=== PATIENT | female | born 1985 | race Caucasian/White ===

== ENCOUNTER 2020-02-11 23:29 | Observation (INO) | payer BC ==
--- OUTSIDE RECORDS SUMMARY | 2020-02-11 23:31 | XMS REPORT | Summary of Care ---
:1985 Author Organization [facility] Address [address] [place] [address] Care Team Providers Name Role Phone Andrae Rodriguez MD Primary Care Provider Reason for Visit Reason Comments Refill Request Encounter Details Date Type Department Care Team Description 12/13/2019 Refill [facility] Family Medicine Bautista Shen MD Refill Request - [address] [place] [address] [place] [address] [phone] Allergies No Known Allergiesdocumented as of this encounter (statuses as of 12/13/2019) Medications Medication Sig Dispensed Refills Start Date End Date Status triamcinolone acetonide Apply to 80 g 1 03/09/2018 Active 0.1 % creamIndications: area(s) 2 Keratosis pilaris (two) times daily. lisdexamfetamine TAKE ONE (1) 30 capsule 0 06/14/2019 Active (VYVANSE) 50 mg CAPSULE(S) BY capsuleIndications: MOUTH EVERY Attention deficit MORNING. disorder of adult lisdexamfetamine TAKE ONE (1) 30 capsule 0 11/16/2019 Active (VYVANSE) 50 mg CAPSULE(S) BY capsuleIndications: MOUTH EVERY Attention deficit MORNING. disorder of adult documented as of this encounter (statuses as of 12/13/2019) Active Problems Problem Noted Date Attention deficit disorder of adult 04/13/2015 Acne vulgaris 04/13/2015 documented as of this encounter (statuses as of 12/13/2019) Immunizations Name Administration Dates Next Due TDAP 06/02/2017 documented as of this encounter Social History Tobacco Use Types Packs/Day Years Used Date Never Smoker Smokeless Tobacco: Never Used Alcohol Use Drinks/Week oz/Week Comments No 0 Standard drinks or equivalent 0.0 Sex Assigned at Date Recorded Not on file Job Start Date Occupation Industry Not on file Not on file Not on file Travel History Travel Start Travel End No recent travel history available. documented as of this encounter Last Filed Vital Signs Not on filedocumented in this encounter Plan of Treatment Date Type Specialty Care Team Description 01/03/2020 Office Visit Family Medicine Bautista Rodriguez MD [address] [place] [address] [phone] Health Maintenance Due Date Last Done Comments VARICELLA VACCINES (1 of 2 - 1984 2-dose childhood series) Depression Screening 12/31/2019 12/30/2018 INFLUENZA VACCINE (#1) 2020 PAP SMEAR 12/31/2020 12/31/2017 DTaP,Tdap,and Td Vaccines (2 - Td) 06/02/2027 06/02/2017 PNEUMOCOCCAL 0-64 YEARS COMBINED Aged Out No longer eligible based on SERIES patient's age to complete this topic documented as of this encounter Results Not on filedocumented in this encounter Visit Diagnoses Diagnosis Attention deficit disorder of adult Attention deficit disorder without menti on of hyperactivity documented in this encounter Insurance Payer Benefit Plan Subscriber ID Effective Dates Phone Address Type / Group BCBS [facility] [id number] 2015-[place] [phone] [address] PPO/POS [place] - OUT OF 87 [id number] [place] [address] documented as of this encounter
--- OUTSIDE RECORDS SUMMARY | 2020-02-11 23:31 | XMS REPORT | Summary of Care ---
:1985 Author Organization [facility] Address [address] [place] [address] Care Team Providers Name Role Phone Andrae Rodriguez MD Primary Care Provider Reason for Visit Reason Comments Refill Request Encounter Details Date Type Department Care Team Description 11/16/2019 Refill [facility] Family Medicine Bautista Shen MD Refill Request - [address] [place] [address] [place] [address] [phone] Allergies No Known Allergiesdocumented as of this encounter (statuses as of 11/16/2019) Medications Medication Sig Dispensed Refills Start Date End Date Status triamcinolone Apply to 80 g 1 03/09/2018 Activ e acetonide 0.1 % area(s) 2 creamIndications: (two) Keratosis pilaris times daily. lisdexamfetamine TAKE ONE 30 capsule 0 06/14/2019 A ctive (VYVANSE) 50 mg (1) capsuleIndications: CAPSULE(S) Attention deficit BY MOUTH disorder of adult EVERY MORNING. lisdexamfetamine TAKE ONE 30 capsule 0 11/16/2019 A ctive (VYVANSE) 50 mg (1) capsuleIndications: CAPSULE(S) Attention deficit BY MOUTH disorder of adult EVERY MORNING. lisdexamfetamine TAKE ONE 30 capsule 0 10/18/2019 D iscontinued (VYVANSE) 50 mg (1) 0 (Reo rder) capsuleIndications: CAPSULE(S) Attention deficit BY MOUTH disorder of adult EVERY MORNING. documented as of this encounter (statuses as of 11/16/2019) Active Problems Problem Noted Date Attention deficit disorder of adult 04/13/2015 Acne vulgaris 04/13/2015 documented as of this encounter (statuses as of 11/16/2019) Immunizations Name Administration Dates Next Due Tdap 06/02/2017 documented as of this encounter Social [...] filedocumented in this encounter Plan of Treatment Health Maintenance Due Date Last Done Comments VARICELLA VACCINES (1 of 2 - 1984 2-dose childhood series) Depression Screening 12/31/2019 12/30/2018 INFLUENZA VACCINE (Season Ended) 2020 PAP SMEAR 12/31/2020 12/31/2017 DTaP,Tdap,and Td [...] Dates Phone Address Type / Group BCBS [facility] [id number] 2015-[place] [phone] [address] PPO/POS [place] - OUT OF 87 [id number] [place] [address] documented as of this encounter
--- OUTSIDE RECORDS SUMMARY | 2020-02-11 23:32 | XMS REPORT | Summary of Care ---
:1985 Author Organization [facility] Address [address] [place] [address] Care Team Providers Name Role Phone Andrae Rodriguez MD Primary Care Provider Reason for Visit Reason Comments Refill Request Encounter Details Date Type Department Care Team Description 12/14/2019 Refill [facility] Family Medicine Bautista Shen MD Refill Request - [address] [place] [address] [place] [address] [phone] Allergies No Known Allergiesdocumented as of this encounter (statuses as of 12/14/2019) Medications Medication Sig Dispensed Refills Start Date [...] as of this encounter (statuses as of 12/14/2019) Active Problems Problem Noted Date Attention deficit disorder of adult 04/13/2015 Acne vulgaris 04/13/2015 documented as of this encounter (statuses as of 12/14/2019) Immunizations Name Administration Dates Next Due TDAP [...] Office Visit Family Medicine Bautista Rodriguez MD [address] [place] [address] [phone] Health Maintenance Due Date Last Done [...] Dates Phone Address Type / Group BCBS [facility] [id number] 2015-[place] [phone] [address] PPO/POS [place] - OUT OF 87 [id number] [place] [address] documented as of this encounter
--- OUTSIDE RECORDS SUMMARY | 2020-02-11 23:32 | XMS REPORT | Continuity of Care Document ---
:1985 Author Organization [facility] t Address [address] [place] [address] Care Team Providers Name Role Phone Andrae Rodriguez MD Attending Clinician Problems This patient has no known problems. Allergies, Adverse Reactions, Alerts This patient has no known allergies or adverse reactions. Medications This patient has no known medications. Procedures This patient has no known procedures. Encounters Start End Encounter Admission Attending Care Care Encounter Source Date/Time Date/Time Type Type Clinicians Facility Department ID 2019-12-14 2019-12-14 Refill [place], [facility] [id number] 00:00:00 00:00:00 [facility] [id number] [facility] [id number] Professio [phone] nal [address] One 2019-12-13 2019-12-13 Refill [place], [facility] [id number] 00:00:00 00:00:00 [facility] [id number] [facility] [id number] Professio [phone] nal 044 Office [address] One 2019-12-13 2019-12-13 Refill [place], [facility] [id number] 00:00:00 00:00:00 [facility] [id number] [facility] [id number] Professio [phone] nal 044 Office [address] One 2019-12-10 2019-12-10 Refill [place], [facility] [id number] 00:00:00 00:00:00 [facility] [id number] [facility] [place] [id number] Professio [phone] [place] [address] [address] One 2019-11-16 2019-11-16 [facility] [id number] 00:00:00 00:00:00 [facility] [id number] [facility] [place] [id number] Professio [phone] [place] [address] [address] One 2019-10-18 2019-10-18 [facility] [id number] 00:00:00 00:00:00 [facility] [id number] [facility] [place] [id number] Professio [phone] [place] [address] [address] One 2019-09-21 2019-09-21 [facility] [id number] 00:00:00 00:00:00 [facility] [id number] [facility] [place] [id number] Professio [phone] [place] [address] [address] One 2019-08-27 2019-08-27 [facility] [id number] 00:00:00 00:00:00 [facility] [id number] [facility] [place] [id number] Professio [phone] [place] [address] [address] One 2019-08-01 2019-08-01 [facility] [id number] 00:00:00 00:00:00 [facility] [id number] [facility] [place] [id number] Professio [phone] [place] [address] [address] One 2019-07-08 2019-07-08 [facility] [id number] 00:00:00 00:00:00 [facility] [id number] [facility] [place] [id number] Professio [phone] nal 044 Office Building One 2019-06-22 2019-06-22 Office [facility] [id number] 16:27:01 16:42:01 Visit [facility] [id number] [facility] [id number] Julio [phone] [place] [address] [address] One Results This patient has no known results.
--- OUTSIDE RECORDS SUMMARY | 2020-02-11 23:32 | XMS REPORT | Summary of Care ---
:1985 Author Organization [facility] Address [address] [place] [address] Care Team Providers Name Role Phone Andrae Rodriguez MD Primary Care Provider Reason for Visit Reason Comments Refill Request Encounter Details Date Type Department Care Team Description 12/10/2019 Refill [facility] Family Medicine Bautista Shen MD Refill Request - [address] [place] [address] [place] [address] [phone] Allergies No Known Allergiesdocumented as of this [...] Office Visit Family Medicine Bautista Rodriguez MD [address] [place] [address] [phone] Health Maintenance Due Date Last Done [...] Dates Phone Address Type / Group BCBS [facility] [id number] 2015-[place] [phone] [address] PPO/POS [place] - OUT OF 87 [id number] [place] [address] documented as of this encounter
--- OUTSIDE RECORDS SUMMARY | 2020-02-11 23:32 | XMS REPORT | Summary of Care ---
:1985 Author Organization [facility] Address [address] [place] [address] Care Team Providers Name Role Phone Andrae Rodriguez MD Primary Care Provider Reason for Visit Reason Comments Refill Request Encounter Details Date Type Department Care Team Description 12/13/[address] [facility] Family Medicine Bautista Shen MD Refill Request - [address] [place] [address] [place] [address] [phone] Allergies No Known Allergiesdocumented as of this [...] Office Visit Family Medicine Bautista Rodriguez MD [address] [place] [address] [phone] Health Maintenance Due Date Last Done [...] Dates Phone Address Type / Group BCBS [facility] [id number] 2015-[place] [phone] [address] PPO/POS [place] - OUT OF 87 [id number] [place] [address] documented as of this encounter
[2020-02-12 00:34] LABS: Absolute Lymphocytes (CBC) 1.8 K/uL (0.7-4.9); Basophils % 0.6 % (0-1.3); Hematocrit 40.2 % (36.0-45.0); Lymphocytes % 31.8 % (15.3-44.8); MPV 8.1 fL (7.6-11.3); RBC Red Blood Cell Count 4.32 M/uL (3.86-4.86)
[2020-02-12 00:41] LABS: Protime INR 0.99
[2020-02-12] MEDS ORDERED: NA CHLORIDE 0.9% 1,000 ML ONE ×2 (00:47→03:36)
[2020-02-12 01:01] LABS: ALT/SGPT 44 U/L (12-78); AST/SGOT 15 U/L (15-37); Albumin 3.7 g/dL (3.4-5.0); Alkaline Phosphatase 54 U/L (45-117); BUN Blood Urea Nitrogen 13 mg/dL (7-18); Bicarbonate 26 mmol/L (21-32); Bilirubin Direct < 0.1 mg/dL (0-0.2); Bilirubin Total 0.3 mg/dL (0.2-1.0); Glucose Level 90 mg/dL (74-106); Potassium 3.6 mmol/L (3.5-5.1); Protein, Total 7.6 g/dL (6.4-8.2); Sodium Level 141 mmol/L (136-145)
--- NOTE | 2020-02-12 01:23 | EDPHYS ---
Physician Documentation [facility] Name: Steph Young Age: 34 yrs Sex: Female : 1985 Arrival Date: 02/11/2020 Time: 23:32 Bed 7 Private MD: ED Physician Barrie Martinez HPI: 02/10 23:55 This 34 yrs old Female presents to ER via Unassigned with complaints of kb possible overdose. 23:55 The patient presents to the emergency department with a possible overdose, pt reports kb taking only one 10mg pill, but bottle of 30 was filled today and only 3 remain. Context: Method: the patient has a confirmed or suspected ingestion, ambien, Time: at 20:45, Extent: the original prescription was for 30 pills/capsules, there were 3 pills/capsules remaining in the container, the strength of the pills/capsules is 10 mg(s), the OD/poisoning occurred at at home, and was witnessed no one, Psychiatric history: none, Previous OD/poisoning history: none. Associated signs and symptoms: The patient has no apparent associated signs or symptoms. Severity of symptoms: At their worst the symptoms were moderate in the emergency department the symptoms are unchanged. The patient has not experienced similar symptoms in the past. The patient has not recently seen a physician. Pt states she got into an argument with her family, took her normal ambien (1 pill) and planned to go to sleep. Pt's mother brought her to the ER concerned that pt took more ambien than she stated. Pt denies suicidal or homicidal ideations. States she has been under more stress lately. Pt has no complaints. . 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 - Social history:: Smoking status: Patient denies any tobacco usage or history of. ROS: 02/10 23:55 Constitutional: Negative for fever, chills, and weight loss, Cardiovascular: Negative kb for chest pain, palpitations, and edema, Respiratory: Negative for shortness of breath, cough, wheezing, and pleuritic chest pain, Abdomen/GI: Negative for abdominal pain, nausea, vomiting, diarrhea, and constipation, Back: Negative for injury and pain, MS/Extremity: Negative for injury and deformity, Skin: Negative for injury, rash, and discoloration, Neuro: Negative for headache, weakness, numbness, tingling, and seizure. Exam: 23:55 Constitutional: This is a well developed, well nourished patient who is awake, alert, kb and in no acute distress. Head/Face: Normocephalic, atraumatic. Chest/axilla: Normal chest wall appearance and motion. Nontender with no deformity. No lesions are appreciated. Cardiovascular: Regular rate and rhythm with a normal S1 and S2. No gallops, murmurs, or rubs. Normal PMI, no JVD. No pulse deficits. Respiratory: Lungs have equal breath sounds bilaterally, clear to auscultation and percussion. No rales, rhonchi or wheezes noted. No increased work of breathing, no retractions or nasal flaring. Abdomen/GI: Soft, non-tender, with normal bowel sounds. No distension or tympany. No guarding or rebound. No evidence of tenderness throughout. Skin: Warm, dry with normal turgor. Normal color with no rashes, no lesions, and no evidence of cellulitis. MS/ Extremity: Pulses equal, no cyanosis. Neurovascular intact. Full, normal range of motion. Neuro: Awake and alert, GCS 15, oriented to person, place, time, and situation. Cranial nerves II-XII grossly intact. Motor strength 5/5 in all extremities. Sensory grossly intact. Cerebellar exam normal. Normal gait. 02/11 00:22 ECG was reviewed by the Attending Physician. kb Vital Signs: 02/10 23:55 BP 120 / 92; Pulse 112; Resp 18; Temp 98.5(O); Pulse Ox 100% on R/A; Weight 48.99 kg lp1 (R); 02/11 00:48 BP 139 / 106; Pulse 98; Resp 20; Pulse Ox 99% on R/A; rv MDM: 02/10 23:40 Patient medically screened. kb 23:54 Data reviewed: vital signs, nurses notes. Data interpreted: Pulse oximetry: on room air kb is 100 %. Interpretation: normal. 02/11 00:24 Transition of care: After a detail discussion of the patient's case, care is kb transferred to Barrie Martinez MD. 03:17 Counseling: I had a detailed discussion with the patient and/or guardian regarding: the 4 historical points, exam findings, and any diagnostic results supporting the discharge/admit diagnosis, lab results. Physician consultation: Adam JOHNSON regarding admission, to the telemetry unit. and will see patient in ED, would like admission per Dr. Carlos Arnett. 02/10 23:54 Order name: Acetaminophen; Complete Time: 01:19 kb 02/11 01:19 Interpretation: Normal except: ACETA < 2.0. [facility] 02/10 23:54 Order name: Basic Metabolic Panel; Complete Time: 01:19 kb 02/11 01:19 Interpretation: Normal except: CL 108. tw 02/10 23:54 Order name: CBC with Diff; Complete Time: 00:45 kb 02/10 23:54 Order name: ETOH Level; Complete Time: 01:19 kb 02/11 01:19 Interpretation: Within normal limits: ETOH < 10. tw 02/10 23:54 Order name: Hepatic Function; Complete Time: 01:19 kb 02/11 01:19 Interpretation: Normal except: GLOB 3.9; A/G 0.9. [facility] 02/10 23:54 Order name: PT-INR; Complete Time: 00:45 kb 02/10 23:54 Order name: Ptt, Activated; Complete Time: 00:45 kb 02/10 23:54 Order name: Salicylate; Complete Time: 01:19 kb 02/11 01:19 Interpretation: Within normal limits: TINO < 1.7. tw 02/10 23:54 Order name: Urine Drug Screen; Complete Time: 16:00 kb 02/11 02:07 Order name: Urinalysis EDSC 02/11 02:07 Order name: Basic Metabolic Panel EDSC 02/11 02:07 Order name: Basic Metabolic Panel EDSC 02/11 02:07 Order name: CBC with Automated Diff EDMS 02/11 02:07 Order name: CBC with Automated Diff EDMS 02/10 23:54 Order name: Urine Test (obtain specimen); Complete Time: 08:31 kb 02/10 23:54 Order name: EKG; Complete Time: 23:54 kb 02/10 23:54 Order name: EKG - Nurse/Tech; Complete Time: 00:46 kb 02/10 23:54 Order name: IV Saline Lock; Complete Time: 00:46 kb 02/10 23:54 Order name: Labs collected and sent; Complete Time: 00:46 kb 02/10 23:54 Order name: Urine Dipstick-Ancillary (obtain specimen); Complete Time: 08:31 kb 02/10 23:54 Order name: Misc. Order: Contact poison control for recommendations; Complete Time: kb 23:59 02/11 02:06 Order name: NPO EDMS 02/11 02:07 Order name: Magnesium EDMS 02/11 02:07 Order name: Magnesium EDMS 02/11 08:41 Order name: Urine Dipstick--Ancillary (enter results) eb 02/11 08:41 Order name: Urine --Ancillary (enter results) eb 02/11 08:50 Order name: Urine --Ancillary; Complete Time: 16:00 EDMS 02/11 08:50 Order name: Urine Dipstick-Ancillary; Complete Time: 16:00 EDMS EC:22 Rate is 99 beats/min. Rhythm is regular. QRS [place] is Normal. OK interval is normal at kb 116 msec. QRS interval is normal at 80 msec. QT interval is normal at 374 msec. Administered Medications: 00:46 Drug: NS 0.9% 1000 ml Route: IV; Rate: 1000 ml; Site: right antecubital; rv 03:19 Follow up: IV Status: Completed infusion; IV Intake: 1000ml rv Disposition: 03:17 Co-signature as Attending Physician, Barrie Martinez MD I agree with the assessment and 4 plan of care. Disposition: 02/12/20 01:22 Hospitalization ordered by Carlos Arnett for Observation. 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 - Bed requested for [facility] ER HOLD. - Status is Observation. em - Condition is Stable. - Problem is new. - Symptoms are unchanged. 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 Pt's mother brought her to the ER concerned that pt took more ambien than she stated. Pt denies suicidal or homicidal ideations. States she has been under more stress lately. Pt has no complaints. kb 02/11 01:25 01:22 Hospitalization Ordered by Shan Mcginnis MD for Inpatient Admission. 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 Bed requested for Telemetry/MedSurg (Inpatient). Status is Inpatient Admission. Condition is Stable. Problem is new. Symptoms are unchanged. 4 01:56 01:25 02/12/2020 01:22 Hospitalization Ordered by Carlos Arnett for Observation. 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 Bed requested for Telemetry/MedSurg (observation). Status is Observation. Condition is Stable. Problem is new. Symptoms are unchanged. [facility] 13:02 01:56 02/12/2020 01:22 Hospitalization Ordered by Carlos Arnett for Observation. 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 Bed requested for [facility] ER HOLD. Status is Observation. Condition is Stable. Problem is new. Symptoms are unchanged. mw
--- NOTE | 2020-02-12 01:23 | ER ---
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 Coronavirus screen: Client denies travel out of the [place] in the last 14 days. At this time, the client does not indicate any symptoms associated with coronavirus-19. Ebola Screen: No symptoms or risks identified at this time. Initial Sepsis Screen: Does the patient meet any 2 criteria? No. Patient's initial sepsis screen is negative. Does the patient have a suspected source of infection? No. Patient's initial sepsis screen is negative. Risk Assessment: Do you want to hurt yourself or someone else? Patient reports no desire to harm self or others. Note Patient denies SI, HI; States being under stress with children and work. Onset of symptoms was February 11, 2020. 23:55 Method Of Arrival: Wheelchair lp1 23:55 Acuity: DAT 2 lp1 02/11 00:00 Ebola Screen: No symptoms or risks identified at this time. ea Triage Assessment: 00:10 General: Appears comfortable, Behavior is drowsy, quiet. Pain: Denies pain. Neuro: rv Level of Consciousness is lethargic, Oriented to person, place, time, situation. Cardiovascular: Patient's skin is warm and dry. Rhythm is sinus tachycardia. Respiratory: Airway is patent Respiratory effort is even, unlabored, Respiratory pattern is regular. 00:10 GI: Abdomen is flat, non-distended, Bowel sounds present X 4 quads. Derm: Skin is rv intact. FIELD SUPPORT SPECIALIST: 00:10 LMP 01/29/2020 lp1 Historical: - Allergies: 00:01 No Known Allergies; ea - Home Meds: 00:01 control [Active]; ea 00:11 Vyvanse 50 mg oral cap 1 cap once daily [Active]; propranolol 20 mg Oral tab [Active]; lp1 zolpidem 10 mg Oral tab nightly [Active]; escitalopram oxalate 10 mg oral tab 1 tab once daily [Active]; - PMHx: 00:01 Depression; Anxiety; ea - PSHx: 00:01 breast augmentation; ea - Immunization history:: Adult Immunizations up to date. - Social history:: Smoking status: Patient denies any tobacco usage or history of. Screenin/11 23:59 Abuse screen: Denies threats or abuse. Nutritional screening: No deficits noted. ea Tuberculosis screening: No symptoms or risk factors identified. Fall Risk None identified. Assessment: 23:56 Reassessment: Poison control rep recommends to do an overdose panel CBC, CMP, Tylenol ea levels and a urine test. Reports if pt remains stable and labs are normal she is able to be released. 02/11 00:12 Reassessment: Patient's mother Marinell: [phone]. lp1 00:48 GI: Abd is soft and non tender X 4 quads. rv 01:31 Reassessment: Patient is alert, oriented x 3, equal unlabored respirations, skin ea warm/dry/pink. (mom) [phone]. 05:13 Reassessment: #[id number]. ea Vital Signs: 02/10 23:55 BP 120 / 92; Pulse 112; Resp 18; Temp 98.5(O); Pulse Ox 100% on R/A; Weight 48.99 kg lp1 (R); 02/11 00:48 BP 139 / 106; Pulse 98; Resp 20; Pulse Ox 99% on R/A; rv ED Course: 02/10 23:32 Patient arrived in ED. cf2 23:33 Jermaine Clay RN is Primary Nurse. rv 23:40 Zaina Diaz FNP-C is PHCP. kb 23:40 Barrie Martinez MD is Attending Physician. kb 23:59 Patient has correct armband on for positive identification. Placed in gown. Bed in low ea position. Call light in reach. Side rails up X2. cardiac monitor technician on. Pulse ox on. NIBP on. 02/11 00:00 Arm band placed on right wrist. Patient placed in an exam room, on a stretcher, on ea pulse oximetry. 00:09 Triage completed. lp1 00:15 Inserted saline lock: 20 gauge in right antecubital area, using aseptic technique. rv Blood collected. 00:15 Initial lab(s) drawn, by me, sent to lab. EKG done, by ED staff, reviewed by Zaina RODRIGUEZ. 01:20 Shan Mcginnis MD is Hospitalizing Provider. tw4 01:24 Hospitalizing Provider role handed off by Shan Mcginnis MD tw4 01:24 Carlos Arnett is Hospitalizing Provider. tw4 03:19 No provider procedures requiring assistance completed. IV is patent, with fluids rv infusing freely, Patient admitted, IV remains in place. Administered Medications: 00:46 Drug: NS 0.9% 1000 ml Route: IV; Rate: 1000 ml; Site: right antecubital; rv 03:19 Follow up: IV Status: Completed infusion; IV Intake: 1000ml rv Intake: 03:19 IV: 1000ml; Total: 1000ml. rv Outcome: 01:22 Decision to Hospitalize by Provider. tw4 03:20 Admitted to ER Hold. Please see [facility] for further documentation. rv 03:20 Condition: good 03:20 Instructed on the need for admit. 13:02 Patient left the ED. em Signatures: Zaina Diaz FNP-C FNP-Rafael White, RN RN em Deirdre Stacy, RN RN lp1 Usha Silva RN RN ea Wadley, Terrence, MD MD tw4 Jermaine Clay RN RN Lucia Pepper 2
--- NOTE | 2020-02-12 02:12 | P.HP ---
Certification for Inpatient Patient admitted to: Observation With expected LOS: <2 Midnights Patient will require the following post-hospital care: None Practitioner: I am a practitioner with admitting privileges, knowledge of patient current condition, hospital course, and medical plan of care. Services: Services provided to patient in accordance with Admission requirements found in Title 42 Section 412.3 of the Code of Federal Regulations <Adam Loyola - Last Filed: 02/12/20 02:07> Patient History Date of Service: 02/12/20 Reason for admission: Altered mental status/possible OD History of Present Illness: 34-year-old female with a past medical history for depression and anxiety presents to the emergency room brought in by family with concerns of possible overdose. Family states that patient was found to be very drowsy. She had refilled a bottle of Ambien today and when they looked at the bottle of Ambien there were only 3 pills left. The prescription was for 30 pills of Ambien 10 mg at bedtime. In the emergency room patient is alert and oriented x3 but very drowsy. Patient told the emergency room physician that she took 3 pills. Approximate time of ingestion was 20:45. Possible OD was not witnessed by anyone. Patient does not have a psych history and denies any suicidal ideation or homicidal ideations. Patient is arousable but drowsy and wants to sleep. States that she got in an argument with a family and wanted to go to sleep. In the emergency room lab work is fairly unremarkable. Salicylate are < 1.7, acetaminophen <2.0. Patient's neurologic exam is negative. Strength is 5/5 in all 4 extremities. Patient states she just wants to sleep. Her GCS score is 15. Patient is maintaining her airway and her vital signs are stable. Patient will be placed in observation and further evaluated. Home medications list reviewed: Yes - Past Medical/Surgical History Diabetic: No -: Depression -: Anxiety -: Breast augmentation Psychosocial/ Personal History: Patient lives at home with family - Family History Family History: Reviewed- Non-Contributory - Social History Smoking Status: Never smoker Alcohol use: No CD- Drugs: No Caffeine use: No Place of Residence: Home <Adam Loyola - Last Filed: 02/12/20 02:07> Date of Service: 02/12/20 <akilah riojas - Last Filed: 02/12/20 18:50> Allergies No Known Allergies Allergy (Unverified 09/23/15 13:24) Review of Systems General: As per HPI Eyes: Unremarkable ENT: Unremarkable Respiratory: Unremarkable Cardiovascular: Unremarkable Gastrointestinal: Unremarkable Genitourinary: Unremarkable Musculoskeletal: Unremarkable Integumentary: Unremarkable Neurological: As per HPI Lymphatics: Unremarkable <Adam Loyola - Last Filed: 02/12/20 02:07> Physical Examination - Vital Signs Temperature: 98.5 F Blood Pressure: 120/92 Pulse: 98 Respirations: 18 Pulse Ox (%): 100 (RA) - Physical Exam General: Alert, In no apparent distress, Oriented x3, Cooperative, Other (Drowsy) HEENT: Atraumatic, Normocephalic, PERRLA, Mucous membr. moist/pink Neck: Supple, No Thyromegaly, Other (Trachea midline) Respiratory: Clear to auscultation bilaterally, Normal air movement Cardiovascular: No edema, Normal pulses, Regular rate/rhythm, Normal S1 S2 Capillary refill: <2 Seconds Gastrointestinal: Normal bowel sounds, Soft and benign, Non-distended Musculoskeletal: No clubbing, No swelling, No contractures, No erythema Integumentary: No rashes, No breakdown, No significant lesion, No tenderness/swelling - Studies Laboratory Data (last 24 hrs) 02/12/20 00:15: PT 11.7, INR 0.99, APTT 27.5 02/12/20 00:15: WBC 5.5, Hgb 13.6, Hct 40.2, Plt Count 270 02/12/20 00:15: Sodium 141, Potassium 3.6, BUN 13, Creatinine 0.71, Glucose 90, Total Bilirubin 0.3, AST 15, ALT 44, Alkaline Phosphatase 54 <Adam Loyola - Last Filed: 02/12/20 02:07> - Studies Laboratory Data (last 24 hrs) 02/12/20 00:15: PT 11.7, INR 0.99, APTT 27.5 02/12/20 00:15: WBC 5.5, Hgb 13.6, Hct 40.2, Plt Count 270 02/12/20 00:15: Sodium 141, Potassium 3.6, BUN 13, Creatinine 0.71, Glucose 90, Total Bilirubin 0.3, AST 15, ALT 44, Alkaline Phosphatase 54 <akilah riojas - Last Filed: 02/12/20 18:50> Assessment and Plan - Plan Impression: Altered mental status secondary to possible OD on Ambien: History of depression/anxiety: Plan: Altered mental status secondary to possible OD on Ambien: Family was concerned that patient may have ODT on Ambien 10 mg. Patient refilled a prescription bottle today and only 3 pills were left in the bottle. Per family patient has been under more stress in the recent past and got into an argument with her family. Patient states that she just wanted to sleep. Told ER physician/provider that she took 3 pills. Patient is alert and oriented x3. Her neurologic exam is unremarkable. Patient is just drowsy and wants to sleep. Possible overdose was not witnessed by anyone. Will start gentle IV hydration. Continuous telemetry. Vital signs q.4 hr. Patient is maintaining her airways with 98-100% O2 saturations on room air. History of depression/anxiety: Denies any suicidal or homicidal ideation. Patient states she has just been under more stress lately. Patient takes S citalopram 10 mg daily. Patient takes propanolol 20 mg p.r.n. for public speaking. Patient also takes Vyvanse 50 mg daily for ADHD. Discharge Plan: Home Plan to discharge in: 48 Hours - Advance Directives Does patient have a Living Will: No Does patient have a Durable POA for Healthcare: No - Code Status/Comfort Care Code Status Assessed: Yes Time Spent Managing Pts Care (In Minutes): 55 <Adam Loyola - Last Filed: 02/12/20 02:07> Physician Review: Patient Assessed, Agree with Above Assessment and Plan Physician Review Additional Text: Suspected zolpidem overdose. Supportive measures with IV hydration and neuro check. Repeat Suicide screen once fully awake. <akilah riojas - Last Filed: 02/12/20 18:50>
[2020-02-12] MEDS ORDERED: NA CHLORIDE 0.9% 1,000 ML IV SCH (03:00)
[2020-02-12 04:02] VITALS: O2SAT 97; BMI 21.1
[2020-02-12 08:05] VITALS: BP 113/87; TEMP 97.8
[2020-02-12 08:50] LABS: Urine Blood NEGATIVE (NEG); Urine Glucose NEGATIVE (NEG); Urine Protein NEGATIVE (NEG); Urine Specific Gravity 1.025 (1.005-1.030); Urine pH 5.5 (5.0-7.0)
[2020-02-12] MEDS ORDERED: ENOXAPARIN 40 MG/0.4 ML SQ SCH (09:00)
[2020-02-12 09:21] LABS: Barbiturates NEGATIVE (NEGATIVE); Benzodiazepines NEGATIVE (NEGATIVE); Cocaine NEGATIVE (NEGATIVE); METHAMPHETAM NEGATIVE (NEGATIVE); Methadone NEGATIVE (NEGATIVE); Opiates NEGATIVE (NEGATIVE); Phencyclidine NEGATIVE (NEGATIVE); THC Cannibis NEGATIVE (NEGATIVE)
--- NOTE | 2020-02-12 12:44 | P.DS ---
Admission Date: 02/12/20 Discharge Date: 02/12/20 Disposition: ROUTINE DISCHARGE Discharge Condition: FAIR Reason for Admission: Altered mental status/possible OD Brief History of Present Illness: 34-year-old woman with a history of anxiety and depression, history of insomnia was brought to the emergency department due to concern for overdose of zolpidem. Patient was drowsy on arrival to the ED. Per chart review, patient stated she took 3 tablets of the Ambien in order to sleep. She denied any suicidal ideation or attempt. Her blood work and toxicology screen in the ED were unremarkable. Patient was placed under observation for monitoring. Hospital Course: Supportive measures with IV fluid done. Patient was drowsy and had no other symptoms. No reported seizures. She became fully awake this morning, alert and oriented x 4. She denied any suicidal ideation or attempt at this time. She acknowledged history of anxiety and depression and never stressful job. She states she took one dose of the ambien but could not sleep and had to take another one. She stated she does not remember the events leading her to the ED. She does not remember what transpired last night in the ED. Further history obtained from the mother who stated patient has not expressed any suicidal thought or ideation. Mother statesd yesterday was patient father's 27th anniversary and that could have been quite stressful for her. She also endorsed patient's stressful job. She stated they were not concerned about her committing suicide but brought her to the ED for concern for the effects of the medication she took. Patient is currently asymptomatic, vitals are stable, blood work unremarkable. She is discharged in the care of the mother. I recommended 24 x 7 supervision for at least the next few days. Patient mother acknowledged and stated they would provide the supervision as recommended. Vital Signs/Physical Exam: Temp Pulse Resp BP Pulse Ox 97.8 F 92 H 18 113/87 99 02/12/20 08:00 02/12/20 08:00 02/12/20 08:00 02/12/20 08:00 02/12/20 08:00 General: Alert, In no apparent distress, Oriented x3 Neurological: Normal speech, Normal strength at 5/5 x4 extr Laboratory Data at Discharge: WBC 5.5 K/uL (4.3-10.9) 02/12/20 00:15 Hgb 13.6 g/dL (12.0-15.0) 02/12/20 00:15 Hct 40.2 % (36.0-45.0) 02/12/20 00:15 Plt Count 270 K/uL (152-406) 02/12/20 00:15 PT 11.7 SECONDS (9.5-12.5) 02/12/20 00:15 INR 0.99 02/12/20 00:15 APTT 27.5 SECONDS (24.3-36.9) 02/12/20 00:15 Sodium 141 mmol/L (136-145) 02/12/20 00:15 Potassium 3.6 mmol/L (3.5-5.1) 02/12/20 00:15 BUN 13 mg/dL (7-18) 02/12/20 00:15 Creatinine 0.71 mg/dL (0.55-1.3) 02/12/20 00:15 Glucose 90 mg/dL (74-106) 02/12/20 00:15 Total Bilirubin 0.3 mg/dL (0.2-1.0) 02/12/20 00:15 AST 15 U/L (15-37) 02/12/20 00:15 ALT 44 U/L (12-78) 02/12/20 00:15 Alkaline Phosphatase 54 U/L (45-117) 02/12/20 00:15 Diet: Regular Activity: Ad tyesha
--- NOTE | 2020-02-13 09:46 | EKG ---
Test Date: 2020-02-12 Test Time: 00:05:21 [employer] Mixer: RV MEASUREMENT RESULTS: Intervals: Rate: 99 KS: 116 QRSD: 80 QT: 374 QTc: 479 [place]: P: 71 KS: 116 QRS: 82 T: 49 INTERPRETIVE STATEMENTS: Normal sinus rhythm Normal ECG Compared to ECG 09/23/2015 11:12:58 Sinus tachycardia no longer present Electronically Signed On 02-13-20 09:44:30 CDT by Cem Ray
== END 2020-02-12 13:05 | disposition home or self-care (01) ==
LOC: ER 23:29 → ERHOLD 02-12 02:50
PROVIDERS: ADMIT Internal Medicine; ATTEND Internal Medicine
DX: R41.82 Altered mental status, unspecified (principal); F41.8 Other specified anxiety disorders; F90.9 Attention-deficit hyperactivity disorder, unspecified type; Z79.3 Long term (current) use of hormonal contraceptives
CPT/HCPCS: 96361; 93005; 85025; 80048; 36415; 80320; 80329 ×2; 81025; 85610; 80076; 80307 ×8; 85730; 81003; 96360; 99285; J7030 ×2; G0378 ×2